=== PATIENT | female | born 1985 | race Caucasian/White ===

== ENCOUNTER 2023-02-27 13:45 | Emergency (ER) | payer BC ==
[2023-02-27] MEDS ORDERED: Diphenoxylate HCl/Atropine Tablet ONE (14:33)
== END 2023-02-27 16:21 | disposition home or self-care (01) ==
LOC: ERS 13:45
DX: R19.7 Diarrhea, unspecified (principal); E86.0 Dehydration; I10 Essential (primary) hypertension; E03.9 Hypothyroidism, unspecified
CPT/HCPCS: 36415; 84443; 96360

== ENCOUNTER 2024-04-04 20:42 | Emergency (ER) | payer BC ==
[~2024-04-04 20:42] MED LIST: Iopamidol-370 76% 500 ML MDV (1 ML CHARGE) ONE
[2024-04-04 21:23] LABS: #Basophils 0.05 10x3/uL (0.0-0.2); %Basophils 0.4 % (0.0-1.0); %Eosinophils 2.2 % (0.0-10.0); %Lymphocytes 32.2 % (21.0-51.0); %Monocytes 5.2 % (0.0-10.0); %Neutrophils 59.7 % (42.0-75.0); Hematocrit 46.9 % (36.0-47.0); Mean Corpuscular HGB CONC 34.1 g/dL (32.0-36.0); Mean Corpuscular Hemoglobin 31.8 pg (27.0-31.0); Mean Corpuscular Volume 93.2 fL (78.0-98.0); Mean Platelet Volume 9.5 fL (7.4-10.4); Platelet Count 357 10x3/uL (130-400); RBC Distribution Width 12.1 % (11.5-14.5); Red Blood Cell (RBC) Count 5.03 mill/uL (4.20-5.40)
[2024-04-04 21:36] LABS: ALT (SGPT) 123 U/L (8-55); AST (SGOT) 68 U/L (5-34); Albumin 4.6 g/dL (3.5-5.0); Alkaline Phosphatase 63 U/L (40-110); Anion Gap 16 mmol/L (10-20); BUN (Urea Nitrogen) 9 mg/dL (7.0-18.7); Bilirubin, Total 0.6 mg/dL (0.2-1.2); Calc. Creatinine Clearance 0 mL/min (70-130); Calcium 10.1 mg/dL (7.8-10.44); Carbon Dioxide 26 mmol/L (22-29); Chloride 105 mmol/L (98-107); Estimated GFR 77; Globulin 3.5 g/dL (2.4-3.5); Glucose 110 mg/dL (70-105); Lipase 17 U/L (8-78); Potassium 3.6 mmol/L (3.5-5.1); Protein, Total 8.1 g/dL (6.0-8.3); Sodium 143 mmol/L (136-145)
[2024-04-04] MEDS ORDERED: Ondansetron PF 4 MG/2 ML Vial ONE ×2 (21:38→23:27)
[2024-04-04] MEDS ORDERED: cefTRIAXone (ROCEPHIN) 2 GM VIAL ONE (21:38)
[2024-04-04] MEDS ORDERED: Sodium Chloride 0.9% 100 ML ONE (21:39)
[2024-04-04 22:10] LABS: Bacteria/HPF None Seen HPF (None Seen); Bilirubin Negative (Negative); Blood, Urine Negative (Negative); CAUTI Indications for Culture Dysuria,urgency,freq; Clarity Clear (Clear); Glucose, Urine (Dipstick) Normal (Negative); Ketone, Urine 20 mg/dL (Negative); Leukocyte Negative Leu/uL (Negative); Nitrite Negative (Negative); Protein, Urine (Dipstick) 20 mg/dL (Neg-Trace); RBC/HPF 0-3 HPF (0-3); Specific Gravity, Urine 1.022 (1.002-1.036); Urobilinogen Normal mg/dL (Less than 2)
[2024-04-04 22:12] LABS: Urine Culture Reflex No No
[2024-04-04] MEDS ORDERED: Metoclopramide HCl 10 MG (2 mL) VIAL ONE (23:37)
[2024-04-04] MEDS ORDERED: diphenhydrAMINE 50 MG/ML VIAL ONE (23:37)
[2024-04-04] MEDS ORDERED: Ketorolac Tromethamine 30 MG (1 mL) VIAL ONE (23:37)
[2024-04-04] MEDS ORDERED: methylPREDNISolone Sod Succ/PF 125 MG/2 ML VIAL ONE (23:54)
[2024-04-05 01:38] LABS: Lactic Acid 0.7 mmol/L (0.5-2.2)
== END 2024-04-05 02:10 | disposition home or self-care (01) ==
LOC: ERS 20:42
DX: R11.2 Nausea with vomiting, unspecified (principal); R19.7 Diarrhea, unspecified; I10 Essential (primary) hypertension
CPT/HCPCS: 36415; 70450; 71045; 74177; 80053; 81001; 83605; 83690; 85025; 87040; 93005; 96361; 96365; 96375; 96376; J0696; J1200; J1885; J2405; J2765; J2930; J3490; Q9967